=== PATIENT | female | born 1955 | race Caucasian/White ===

== ENCOUNTER 2020-08-15 18:52 | Emergency (ER) | payer MEDICAID, SELFPAY ==
[2020-08-15 19:06] VITALS: BP 163/98; PULSE 80; RESP 18; TEMP 36.9; O2SAT 97; BMI 25.4
--- NOTE | 2020-08-15 19:12 | XR_ITS ---
WS: [id number] EXAM: RIGHT WRIST: 3 VIEWS DATE OF EXAMINATION: 08/15/2020, 1928 hours COMPARISON: Right hand examination from 05/17/2019. HISTORY: Patient is 64 years old with wrist pain status post fall. FINDINGS: Bone density is decreased. There are findings of a distal radial metaphyseal fracture with slight int ra-articular extension with minimal impaction and angulation deformity. No ulnar fracture seen. No de finite carpal bone fracture is identified. Slight changes of arthritis are seen in the wrist as well as at the first metacarpal phalangeal joint. Soft tissue swelling dorsally at the fracture site noted . XR/XR wrist RT min 3V* [id number] IMPRESSION: Minimally impacted and angulated distal radial metaphyseal fracture with intra- articular extension.
--- NOTE | 2020-08-15 19:13 | W.ED.EXTPRO ---
HPI - Extremity Problem General: Chief complaint: Extremity Injury, Upper Stated complaint: RIGHT WRIST/ARM INJURY FALL Time Seen by Provider: 08/15/20 19:12 History of Present Illness: HPI Narrative: Patient is a 64-year-old female comes to the ED with right wrist pain. Patient says couple hours ago she was walking to the [facility] [place] and she slipped on a wet rock and caught herself with her right arm outstretched. Patient says she really felt pain in her right wrist after fall. She currently rates the pain in her right wrist and 8 out of 10. Denies any other symptoms. Denies head trauma or loss of consciousness. Associated symptoms: Deny chest pain, fever(s) or rash Review of Systems Const: Denies: fever(s), chills or fatigue Eyes: Denies: change in vision or eye discomfort ENMT: Denies: throat pain, odynophagia, nasal discharge or nasal congestion Card: Denies: chest pain, palpitations, edema, swelling of feet/ankles, dyspnea on exertion or orthopnea Resp: Denies: dyspnea, productive cough or non-productive cough GI: Denies: abdominal pain, nausea, vomiting, diarrhea, constipation or hematochezia : Denies: flank pain, dysuria or hematuria Musc: Reports: extremity pain (right wrist pain); Denies: neck pain, back pain or extremity swelling Skin/Breast: Denies: rash or new lesions Neuro: Denies: headache(s), numbness in extremities or weakness in extremities Physical Exam Const: COMMON NORMALS: no acute distress, patient oriented x3, healthy appearing and alert GENERAL APPEARANCE: cooperative and comfortable HENMT: COMMON NORMALS: normocephalic HEAD & SCALP: normocephalic MOUTH: Normal oral and palatal mucosa present THROAT: posterior oropharynx normal and uvula midline Neck/C-Spine: COMMON NORMALS: supple GENERAL: Yes normal visual inspection Resp: COMMON NORMALS: normal respiratory effort, No retractions, No use of accessory muscles and clear to auscultation bilaterally AUSCULTATION: clear to auscultation bilaterally Cardio: COMMON NORMALS: regular rate, regular rhythm, S1 normal heart sound present, S2 normal heart sound present, No gallops present (Cardio), No clicks present (Cardio), No murmurs present (Cardio) and Peripheral pulses 2+ throughout RATE: regular rate RHYTHM: regular rhythm HEART SOUNDS: S1 normal heart sound present and S2 normal heart sound present PERIPHERAL PULSES: Peripheral pulses 2+ throughout GI: COMMON NORMALS: Normal to inspection, nondistended, normoactive bowel sounds present, Soft to palpation, non-tender and no masses PALPATION: Yes Soft to palpation : COMMON NORMALS: Yes no CVA tenderness BLADDER/KIDNEY EXAM: Yes no CVA tenderness Back/Pelvis: COMMON NORMALS: no CVA tenderness Extremity: RIGHT UPPER EXTREMITY: Yes wrist Right wrist: Yes inspection (No visible deformity, ecchymosis or edema present.), Yes palpation (Tenderness to palpation over both medial and lateral aspect of wrist.), Yes ROM (Limited due to pain) and Yes neurovascular exam (Sensation intact, 2+ radial pulse, cap refill normal) Neuro: COMMON NORMALS: patient oriented x3 and moves all extremities SENSORIUM/ORIENTATION: Yes alert Skin: COMMON NORMALS: no rashes or lesions noted GENERAL SKIN EXAM: no rashes or lesions noted and dry skin Course Vital Signs: Vital signs: Vital Signs Temperature 98.4 F 08/15/20 19:06 Pulse Rate 80 08/15/20 19:06 Respiratory Rate 18 08/15/20 19:06 Blood Pressure 163/98 08/15/20 19:06 Pulse Oximetry 97 08/15/20 19:06 MDM - Extremity (Nontraumatic) MDM Narrative: Medical decision making narrative: Patient is a 64-year-old female comes to the ED with right wrist pain after fall. Physical exam showed no visible deformity or edema right wrist. Radial pulse 2+, sensation distal to injury intact. Cap refill normal. X-ray showed nondisplaced distal radial head fracture. Patient was put in a sugar tong splint and I placed an order for case management to refer patient to orthopedic. Patient was discharged with a written prescription for hydrocodone and told to limit activity with right hand and continue wearing splint and keep it dry. I told patient that case management should be contacting her in the next several days to set up an appointment with [facility] orthopedics. Return to ED precautions given. Patient understood and agreed with plan. Imaging Data^: Xray Ortho: Attestation: I personally reviewed and interpreted this imaging study as follows: My impression: Right wrist x-ray showed a nondisplaced distal radial head fracture. Discharge Plan Discharge Patient Disposition: Home Condition: Stable Discharge Orders: Discharge Order (Routine); Ordered 08/15/20 Ordered By: Ablerto Crisostomo Referrals: Bruce Vinson DO [Primary Care Provider] - Discharge Diet: Regular Discharge Activity: Limit activity as instructed Patient Instructions: Wrist Fracture in Adults (ED) Activity Restrictions/Additional Instructions: Follow-up with medical provider as directed. Case management should be contacting you in the next several days to set up an appointment with orthopedic clinic at [facility]. Take medications as prescribed. You can also take [id number] ibuprofen per bottle instructions in between hydrocodone doses as needed for pain. Return to the ER or your medical provider if condition worsens. Please read and understand discharge instructions. If any questions, please ask. Coding Level of Care Code ED Linoleum Layer Helper for Yarely Fwd Exam Comprehensive
[2020-08-15] MEDS: HYDROcodone-acetaminophen 7.5-325 mg Tablet 1 TAB PO ×2 (19:51→20:16)
--- NOTE | 2020-08-16 09:42 | DCPLANNER ---
change manager had message to schedule a follow up appointment for patient with ortho. change manager called the ortho clinic, spoke with Samra, gave clinic patients information. change manager was told that patients information would be printed and reviewed. Clinic will call patient with appointment information.
--- NOTE | 2020-08-17 15:21 | DCPLANNER ---
Patient has a follow up appointment scheduled for Friday, August 21, 2020 at 11:15 with . Clinic will call patient with appointment information.
--- NOTE | 2020-08-28 08:24 | DCPLANNER ---
Patient had a follow up appointment scheduled for 08.21.20 with ortho - patient did attend the appointment.
== END 2020-08-15 20:22 | disposition home or self-care (01) ==
LOC: ER 19:59
PROVIDERS: Emergency Provider Physician Assistant; PCP Internal Medicine
DX: M25.531 Pain in right wrist (principal)
CPT/HCPCS: 12345; 29125; 73110; 99281; 99283

== ENCOUNTER → 2020-08-21 11:39 | Outpatient (BNVA) | payer MEDICAID, SELFPAY | PROVIDERS: PCP Internal Medicine; Referring Provider Physician Assistant; Visit Provider Specialist | DX: S52.501A Unspecified fracture of the lower end of right radius, initial encounter for closed fracture (principal) | CPT/HCPCS: 73110 ==

== ENCOUNTER 2020-08-21 14:47 | Outpatient (CLI) | payer MEDICAID, SELFPAY | END 2020-08-21 14:48 | disposition home or self-care (01) | LOC: SPT 14:48 | PROVIDERS: PCP Internal Medicine; Visit Provider Specialist | DX: Z46.89 Encounter for fitting and adjustment of other specified devices (principal); S52.501D Unspecified fracture of the lower end of right radius, subsequent encounter for closed fracture with routine healing; W19.XXXD Unspecified fall, subsequent encounter | CPT/HCPCS: 97760; L3982 ==

== ENCOUNTER → 2020-09-06 08:03 | Outpatient (BNVA) | payer MEDICAID, SELFPAY | PROVIDERS: PCP Internal Medicine; Visit Provider Specialist | DX: S52.501A Unspecified fracture of the lower end of right radius, initial encounter for closed fracture (principal); X58.XXXA Exposure to other specified factors, initial encounter | CPT/HCPCS: 73110 ==

== ENCOUNTER → 2020-10-04 08:43 | Outpatient (BNVA) | payer MEDICAID, SELFPAY | PROVIDERS: PCP Internal Medicine; Visit Provider Specialist | DX: S52.501A Unspecified fracture of the lower end of right radius, initial encounter for closed fracture (principal); X58.XXXA Exposure to other specified factors, initial encounter | CPT/HCPCS: 73110 ==

== ENCOUNTER → 2021-07-04 11:49 | Outpatient (BNVA) | payer MEDICAID, SELFPAY | PROVIDERS: PCP Internal Medicine; Visit Provider Nurse Practitioner | DX: M25.571 Pain in right ankle and joints of right foot (principal); M79.89 Other specified soft tissue disorders | CPT/HCPCS: 73610 ==

== ENCOUNTER 2022-07-31 20:48 | Emergency (ER) | payer MEDICARE, MEDICAID, SELFPAY ==
[2022-07-31 21:12] VITALS: BP 148/81; PULSE 79; RESP 18; TEMP 36.9; O2SAT 98; BMI 25.4
[2022-07-31 21:16] VITALS: BP 157/105; PULSE 79; RESP 17
--- NOTE | 2022-07-31 21:40 | W.ED.HA ---
HPI - Headache General: Chief Complaint: Headache Stated Complaint: Migrane, N/V Time Seen by Provider: 07/31/22 21:27 Source: patient Mode of arrival: ambulatory Limitations: no limitations History of Present Illness: 66-year-old female states she has a history of headaches has had long history of migraine headache states that she had a migraine that started this morning. States that gradually worsened and is currently an 8 out of 10 she has photophobia phonophobia denies any fever denies any neck pain states this feels like her previous migraines. Associated symptoms: Deny chest pain, fever(s), nausea, rash or vomiting Review of Systems Const: Denies: fever(s), chills, body aches or change in appetite Eyes: Denies: blurry vision or eye discomfort ENMT: Denies: throat pain or dental pain Card: Denies: chest pain Resp: Denies: dyspnea GI: Denies: abdominal pain, nausea, vomiting or diarrhea : Denies: dysuria Musc: Denies: neck pain or back pain Skin/Breast: Denies: rash Neuro: Reports: headache(s) Psych: Denies: depression Willy/Lymph: Denies: easy bruising All/Imm: Denies: urticaria PFSH ED PFSH: Medical History Adhesive capsulitis of left shoulder Colitis GERD (gastroesophageal reflux disease) Osteoarthritis of left shoulder Family History Brother Diabetes Mother Stroke Father Stroke Social History Smoking and tobacco status: current every day smoker cigarettes Packs smoked per day: 0.5 Physical Exam Const: COMMON NORMALS: no acute distress, patient oriented x3 and healthy appearing HENMT: COMMON NORMALS: normocephalic and atraumatic HEAD & SCALP: normocephalic and atraumatic Eye: COMMON NORMALS: Equal, round and reactive pupils present and EOMs intact bilaterally PUPIL: Yes Equal, round and reactive pupils present Neck/C-Spine: COMMON NORMALS: full ROM and supple Chest: COMMONS NORMALS: normal inspection of the chest and normal palpation of entire chest wall Resp: COMMON NORMALS: normal respiratory effort, No retractions, No use of accessory muscles and clear to auscultation bilaterally AUSCULTATION: clear to auscultation bilaterally Cardio: COMMON NORMALS: regular rate, regular rhythm and No murmurs present (Cardio) RATE: regular rate RHYTHM: regular rhythm GI: COMMON NORMALS: Normal to inspection, nondistended, normoactive bowel sounds present, Soft to palpation, non-tender and no masses PALPATION: Yes Soft to palpation Extremity: COMMON NORMALS: normal to inspection and full ROM Neuro: COMMON NORMALS: patient oriented x3, moves all extremities and no focal motor deficits Psych: COMMON NORMALS: mental status grossly normal, Normal thought process present and cooperative THOUGHT PROCESS: Normal thought process present Skin: COMMON NORMALS: no rashes or lesions noted and no wounds GENERAL SKIN EXAM: no rashes or lesions noted Course Vital Signs: Vital signs: Vital Signs Temperature 98.5 F 07/31/22 21:12 Pulse Rate 75 07/31/22 22:16 Respiratory Rate 13 07/31/22 22:16 Blood Pressure 164/98 07/31/22 22:16 Pulse Oximetry 98 07/31/22 21:12 Oxygen Delivery Me thod 07/31/22 22:16 MDM - Headache Medical Decision Making Patient presents here with a migraine headache her symptoms are resolved here with treatment she has no signs of meningitis or subarachnoid hemorrhage she is stable for discharge she is to follow-up with her PCP and return if worsening she understands agrees to plan. Discharge Plan Discharge Patient Disposition: Home Clinical Impression: Migraine Condition: Stable Prescriptions: No Action famotidine 20 mg tablet 20 mg PO BID Qty: 60 0RF Rx Instructions: after [address] Ferris's nurse for report metronidazole 500 mg tablet 500 mg PO Q8H Qty: 20 0RF Discharge Orders: Discharge ED (Routine); Ordered 07/31/22 Ordered By: Margarita Street Referrals: Jenna Ferris MD [Primary Care Provider] - 1-3 days Discharge Diet: Advance as tolerated Discharge Activity: Resume usual activity Patient Instructions: Migraine Headache (ED) Coding Level of Care Code ED Air Pollution Control Engineer for Chg Fwd Exam Comprehensive
[2022-07-31 21:46] VITALS: BP 153/99; PULSE 66; RESP 16
[2022-07-31] MEDS: diphenhydrAMINE 50 mg/mL SDV 1mL 25 MG IVP (22:12)
[2022-07-31] MEDS: metoclopramide 5 mg/mL SDV 2 mL IVP (22:12)
[2022-07-31] MEDS: ketorolac 30 mg/mL INJ 15 MG IVP (22:12)
[2022-07-31 22:16] VITALS: BP 164/98; PULSE 75; RESP 13
[2022-07-31 22:46] VITALS: BP 138/87; PULSE 75; RESP 18
== END 2022-07-31 22:47 | disposition home or self-care (01) ==
PROVIDERS: Emergency Provider Emergency Medicine; PCP Family Medicine
DX: G43.909 Migraine, unspecified, not intractable, without status migrainosus (principal); F17.210 Nicotine dependence, cigarettes, uncomplicated
CPT/HCPCS: 96374; 96375; 99284; J1200; J1885; J2765

== ENCOUNTER → 2023-10-07 10:25 | Outpatient (BNVA) | payer MEDICARE, MEDICAID, SELFPAY | PROVIDERS: PCP Family Medicine; Visit Provider Family Medicine | DX: K21.9 Gastro-esophageal reflux disease without esophagitis (principal); M19.012 Primary osteoarthritis, left shoulder; E03.9 Hypothyroidism, unspecified; E53.8 Deficiency of other specified B group vitamins; S52.571D Other intraarticular fracture of lower end of right radius, subsequent encounter for closed fracture with routine healing; Z12.31 Encounter for screening mammogram for malignant neoplasm of breast; N39.3 Stress incontinence (female) (male) | CPT/HCPCS: 80053; 82607; 84443; 85025 ==

== ENCOUNTER 2023-10-22 11:52 | Outpatient (CLI) | payer MEDICARE, MEDICAID, SELFPAY ==
--- NOTE | 2023-10-22 11:59 | MM_ITS ---
WS: [id number] BILATERAL 3D TOMOSYNTHESIS DIGITAL SCREENING MAMMOGRAPHY WITH CAD CLINICAL INFORMATION: screening: last done 2018 HISTORY: Screening mammogram. No current complaints. COMPARISON: 2018 TECHNIQUE: Bilateral CC and MLO views. FINDINGS: The breasts are composed of heterogeneous fibroglandular density tissue, which can limit the detectio n of small underlying mass lesions. No suspicious mass, asymmetry, calcifications, or architectural d istortion. No evidence of malignancy. A few incidental punctate calcifications around IMPRESSION: MM/[place] [id number] BI-RADS: 2-Benign FOLLOW UP: 1 Year Follow-up Recommend return to annual screening mammography.
== END 2023-10-22 11:53 | disposition home or self-care (01) ==
LOC: RAD 11:52
PROVIDERS: PCP Family Medicine; Visit Provider Family Medicine
DX: Z12.31 Encounter for screening mammogram for malignant neoplasm of breast (principal)
CPT/HCPCS: 77063; 77067

== ENCOUNTER 2023-10-28 14:52 | Outpatient (CLI) | payer MEDICARE, MEDICAID, SELFPAY ==
--- NOTE | 2023-10-28 15:01 | XRR_ITS ---
PROCEDURE INFORMATION: Exam: XR Left Hip Exam date and time: 10/28/2023 3:13 PM Age: 67 years old Clinical indication: Injury or trauma; Fall; Blunt trauma (contusions or hematomas); Left; Hip; Injury date: 2 weeks ago; Additional info: Pain in left hip with ambulation difficulty TECHNIQUE: Imaging protocol: Radiologic exam of the left hip. Views: 2 or 3 views hip with pelvis when performed. COMPARISON: No relevant prior studies available. FINDINGS: Bones/joints: Severe left hip osteoarthritis with subchondral degenerative cystic changes. Soft tissues: Unremarkable. XR/XR hip LT 2-3V wo/w pel* [id number] IMPRESSION: Severe left hip osteoarthritis with subchondral degenerative cystic changes.
== END 2023-10-28 14:53 | disposition home or self-care (01) ==
LOC: RAD 14:53
PROVIDERS: PCP Family Medicine; Visit Provider Nurse Practitioner Family
DX: M16.12 Unilateral primary osteoarthritis, left hip (principal)
CPT/HCPCS: 73502

== ENCOUNTER → 2023-12-16 07:48 | Outpatient (BNVA) | payer MEDICARE, MEDICAID, SELFPAY | PROVIDERS: PCP Family Medicine; Referring Provider Family Medicine; Visit Provider Student in an Organized Health Care Education/Training Program | DX: M16.12 Unilateral primary osteoarthritis, left hip (principal); Z01.818 Encounter for other preprocedural examination; M25.559 Pain in unspecified hip | CPT/HCPCS: 99204 ==

== ENCOUNTER 2023-12-30 11:16 | Outpatient (CLI) | payer MEDICARE, MEDICAID, SELFPAY ==
[2023-12-30 11:43] LABS: Basophils % 0.6 %; Eosinophils # 0.4 10^3/uL (0.0-0.8); Eosinophils % 7.3 %; Hematocrit 39.8 % (36-47); Lymphocytes # 1.3 10^3/uL (0.8-4.8); Lymphocytes % 26.4 %; Mean Corpuscular HGB Conc 32.9 g/dL (30-55); Mean Corpuscular Hemoglobin 29.4 pg (27-33); Mean Corpuscular Volume 89.2 fl (85-98); Mean Platelet Volume 8.7 fL (7.4-10.4); Monocytes # 0.4 10^3/uL (0.2-0.9); Monocytes % 8.3 %; Neutrophils # 2.75 10^3/uL (1.8-7.7); Neutrophils % 57.2 %; Nucleated Red Blood Cells % 0 %; Platelet Count 287 10^3/cmm (157-399); Red Blood Count 4.46 10^6/uL (3.85-5.65); Red Cell Distribution Width 12.5 % (12.1-15.1); White Blood Count 4.81 10^3/uL (3.29-11.43)
[2023-12-30 11:54] LABS: Chloride 101 mmol/L (98-107); Potassium 4.4 mmol/L (3.5-5.1); Sodium 137 mmol/L (136-145)
[2023-12-30 12:06] LABS: Albumin Level 4.2 g/dL (3.5-5.2)
[2023-12-30 12:10] LABS: Urine Appearance Hazy (CLEAR); Urine Color Yellow (Yellow); pH Urine 7 (5-7)
[2023-12-30 12:11] LABS: Add Urine Microscopic? YES; Bilirubin Urine Neg (Negative); Blood Urine 2+ (Negative); Glucose Urine UA Norm (Normal); Ketones Urine Negative (Negative); Leukocyte Esterase Urine 1+ (Negative); Nitrate Urine Positive (Negative); Protein Urine Neg (Negative); Urobilinogen Urine Norm (Negative)
[2023-12-30 12:14] LABS: RBC Urine 0-4 /hpf (0-2); WBC Urine 15-25 /hpf (0-5)
[2023-12-30 12:15] LABS: Add Urine Culture? Yes; Bacteria Urine 3+ /hpf; Squamous Epithelial Cell Urine 0-4 /hpf (0-5)
[2023-12-30 12:51] LABS: Anion Gap 15.4 (5-19); Aspartate Amino Transferase 32 U/L (0-32); Blood Urea Nitrogen 15 mg/dL (8-23); Calcium 9.1 mg/dL (8.5-10.5); Carbon Dioxide 25 mmol/L (22-29); Globulin 2.9 g/dL (1.3-4.6); Glomerular Filtration Rate 71.5 mL/min (90-130); Glucose 111 mg/dL (65-115); Osmolality Calculated 286 mOsm/kg (285-295); Total Bilirubin 0.4 mg/dL (0.15-1.2); Total Protein 7.1 g/dL (6.6-8.7)
[2023-12-30 12:55] LABS: Alanine Aminotransferase 42 U/L (0-33)
[2023-12-30 13:20] LABS: Alkaline Phosphatase 132 U/L (35-105)
[2024-01-05 00:15] LABS: Cotinine, Urine 7 ng/mL; Nicotine, Urine 7 ng/mL
== END 2023-12-30 11:17 | disposition home or self-care (01) ==
LOC: LAB 11:19
PROVIDERS: PCP Family Medicine; Visit Provider Student in an Organized Health Care Education/Training Program
DX: Z01.818 Encounter for other preprocedural examination (principal)
CPT/HCPCS: 36415; 80053; 80323; 81001; 85025; 87077; 87086; 87186

== ENCOUNTER 2024-01-06 09:50 | Outpatient (CLI) | payer MEDICARE, MEDICAID, SELFPAY ==
--- NOTE | 2024-01-06 10:00 | CT_ITS ---
WS: [id number] CT LEFT HIP ORI PROTOCOL. HISTORY: ARTHRITIS Technique: All CT scans at [facility] use at least one of these dose optimization techniques: automated exposure control; mA and/or kV adjustment per patient size (includes targeted exams where dose is matched to clinical indication); or iterative reconstruction. DLP: 820.22 mGy COMPARISON: None available. Axial imaging through the pelvis. Severe osteoarthritis of the LEFT hip. Loss of the normal joint spa ce with subchondral cystic changes in the femoral head and acetabulum. There is bone upon bone. Marke d osteophytic ridging around the femoral head. There is additional increased soft tissue surrounding the LEFT femoral head. Suspect synovitis and possible fluid. Negative bilateral hip imaging. IMPRESSION: CT performed for LEFT hip Ori procedure. Severe osteoarthritis LEFT hip.
== END 2024-01-06 09:51 | disposition home or self-care (01) ==
LOC: RAD 09:50
PROVIDERS: PCP Family Medicine; Visit Provider Student in an Organized Health Care Education/Training Program
DX: M16.12 Unilateral primary osteoarthritis, left hip (principal)
CPT/HCPCS: 73700

== ENCOUNTER → 2024-01-07 09:14 | Outpatient (BNVA) | payer MEDICARE, MEDICAID, SELFPAY | PROVIDERS: PCP Family Medicine; Visit Provider Family Medicine | DX: Z01.818 Encounter for other preprocedural examination (principal) | CPT/HCPCS: 81000 ==

== ENCOUNTER 2024-01-11 11:37 | Outpatient (CLI) | payer MEDICARE, MEDICAID, SELFPAY ==
[2024-01-11 11:55] LABS: Bilirubin Urine 1+ (Negative); Blood Urine 2+ (Negative); Glucose Urine UA Norm (Normal); Ketones Urine Negative (Negative); Leukocyte Esterase Urine Trace (Negative); Nitrate Urine Negative (Negative); Protein Urine Neg (Negative); Urine Appearance Clear (CLEAR); Urine Color Yellow (Yellow); Urobilinogen Urine 1 mg/dL (Negative); pH Urine 6.5 (5-7)
[2024-01-11 12:01] LABS: Add Urine Culture? No; Bacteria Urine TRACE /hpf; RBC Urine RARE /hpf (0-2); WBC Urine 0-4 /hpf (0-5)
== END 2024-01-11 11:38 | disposition home or self-care (01) ==
PROVIDERS: PCP Family Medicine; Visit Provider Family Medicine
DX: Z01.818 Encounter for other preprocedural examination (principal)
CPT/HCPCS: 81001

== ENCOUNTER 2024-01-12 12:08 | Observation (INO) | payer MEDICARE, MEDICAID, SELFPAY ==
[2024-01-12] VITALS (19 sets, daily range): BP systolic 110–150; BP diastolic 53–82; PULSE 62–77; RESP 14–21; TEMP 36.3–36.7; O2SAT 93–100; BMI 25.4
--- NOTE | 2024-01-12 | XR_ITS ---
WS: [id number] INTRAOPERATIVE TECHNIQUE: 1 Spot fluoroscopic images for intraoperative purposes. FLUOROSCOPY TIME: 43.5 seconds CLINICAL INFORMATION: ORIF hip, or pic COMPARISON: None. FINDINGS: Intraoperative changes LEFT SABRINA. Hardware appears in good position. IMPRESSION: Images obtained for intraoperative purposes.
[2024-01-12 07:49] LABS: Basophils # 0.1 10^3/uL (0.0-0.1); Eosinophils # 0.5 10^3/uL (0.0-0.8); Eosinophils % 8.3 %; Hematocrit 44.4 % (36-47); Lymphocytes # 1.5 10^3/uL (0.8-4.8); Lymphocytes % 24.2 %; Mean Corpuscular HGB Conc 33.6 g/dL (30-55); Mean Corpuscular Hemoglobin 30.1 pg (27-33); Mean Corpuscular Volume 89.7 fl (85-98); Mean Platelet Volume 8.8 fL (7.4-10.4); Monocytes # 0.6 10^3/uL (0.2-0.9); Monocytes % 8.7 %; Neutrophils # 3.63 10^3/uL (1.8-7.7); Neutrophils % 57.6 %; Nucleated Red Blood Cells % 0 %; Platelet Count 340 10^3/cmm (157-399); Red Blood Count 4.95 10^6/uL (3.85-5.65); Red Cell Distribution Width 13.2 % (12.1-15.1); White Blood Count 6.29 10^3/uL (3.29-11.43)
[2024-01-12] MEDS: ketorolac 30 mg/mL INJ IVP (08:03)
[2024-01-12] MEDS: acetaminophen 1,000 MG/100 ML PIGGYBACK 400 MG IV ×3 (08:03→19:58)
[2024-01-12] MEDS: lactated ringers 500 ML IV (08:03)
[2024-01-12 08:12] LABS: Anion Gap 17.4 (5-19); Blood Urea Nitrogen 19 mg/dL (8-23); Calcium 9.3 mg/dL (8.5-10.5); Carbon Dioxide 22 mmol/L (22-29); Chloride 100 mmol/L (98-107); Glomerular Filtration Rate 62.5 mL/min (90-130); Glucose 102 mg/dL (65-115); Osmolality Calculated 282 mOsm/kg (285-295); Potassium 4.4 mmol/L (3.5-5.1); Sodium 135 mmol/L (136-145)
[2024-01-12] MEDS: scopolamine 1.5 Patch 1 PATCH TRANSDERMA (08:19)
--- NOTE | 2024-01-12 08:19 | W.PM.OPSUD ---
Surgery/Procedure H&P Update DATE OF PROCEDURE: January 12, 2024 DATE H&P PERFORMED: 12/16/23 H&P UPDATE INFORMATION: I have reviewed H&P completed within last 30 days, I have examined patient prior to procedure and No changes to prior documentation PREOP DIAGNOSIS: Left hip degenerative joint disease PRIMARY INDICATION FOR PROCEDURE: Left hip degenerative joint disease PLANNED PROCEDURE: Operation Date: 01/12/24 08:40 Proposed Procedures p Ori Robot Anterior Hip Arthroplasty(left)(Left) - Brian Crisostomo DO
[2024-01-12] MEDS: ceFAZolin 2,000 MG in sodium chloride 0.9% (plus) 50 ML 100 MG IV ×3 (08:33→19:57)
[2024-01-12] MEDS: tranexamic acid 1,000 mg/10mL SDV 1000 MG IV (09:14)
[2024-01-12] MEDS: lidocaine-epi 1% 20 mL INJ INJECTION (09:42)
--- NOTE | 2024-01-12 10:00 | PC.NURSE ---
Called and notified family, Michelle, of procedure start at 0930.
--- NOTE | 2024-01-12 10:37 | P.ANESASSM_ITS ---
Pre-Anesthetic Assessment Height/Weight: Height 1.55 m Weight 61.235 kg O2 Del Method Room Air 01/12/24 07:32 Preop Diagnosis: Left hip degenerative joint disease Operation Date: 01/12/24 08:40 Proposed Procedures p Ori Robot Anterior Hip Arthroplasty(left)(Left) - Brian Crisostomo DO Familial anesthetic complications: none Was Beta Gabrielle taken within 24 hours: N/A Was Clonidine taken within 24 hours: N/A Last intake: Intake Last Liquid Date 01/11/24 Last Liquid Time 21:00 Last Solid Date 01/11/24 Last Solid Time 21:00 Social Tobacco and No alcohol Exam alert, oriented x 3 and regular rate & rhythm Airway Submandibular: within normal limits Cervical ROM: within normal limits Mallampati: Class II Dentition: false Pulmonary Chronic Obstructive Pulmonary Disease GI Gastroesophageal Reflux Disease colitis Musc/skel Osteoarthritis/DJD Anesthetic Plan ASA status: 3 Anesthesia: Regional (specify below) (SAB) Medications/Allergies Home Medications Medication Instructions Recorded Confirmed Last Taken Type famotidine 20 mg tablet 20 mg PO BID #60 tabs 02/19/22 01/09/24 Unknown Rx fluticasone propionate 50 1 spray intranasal BID #16 grams 11/25/22 01/09/24 Unknown Rx mcg/actuation nasal spray,suspension diclofenac sodium 75 mg 75 mg PO BID PRN pain #60 tabs 12/24/23 01/09/24 01/08/24 Rx tablet,delayed release Allergies Allergy/AdvReac Type Severity Reaction Status Date / Time No Known Allergies Allergy Verified 01/07/24 09:06 [facility] Anesthesia Medical History URI with cough and congestion Colitis GERD (gastroesophageal reflux disease) Adhesive capsulitis of left shoulder Osteoarthritis of left shoulder Surgical History H/O: hysterectomy Family History Brother Diabetes Mother Stroke Father Stroke Social History Smoking and tobacco/nicotine status: current every day tobacco/nicotine user cigarettes Packs smoked per day: 0.5 Alcohol intake: never Data Anesthesia 01/12/24 07:20 01/12/24 07:20 Short CBC 01/12/24 Range/Units 07:20 WBC 6.29 (3.29-11.43) 10^3/uL Hgb 14.90 (11.27-16.99) g/dL Hct 44.4 (36-47) % MCV 89.7 (85-98) fl Plt Count 340 (157-399) 10^3/cmm Neut % (Auto) 57.6 % Neut # (Auto) 3.63 (1.8-7.7) 10^3/uL BMP 01/12/24 07:20 Sodium 135 L Potassium 4.4 Chloride 100 Carbon Dioxide 22 BUN 19 Creatinine 0.9 Glucose 102 Calcium 9.3 Blood Bank 01/12/24 07:20 Blood Type A Positive Rho(D) Type Rh positive Antibody Screen Negative Cardiac Studies: 2 No Data to Display
[2024-01-12] MEDS: sodium chloride 0.9% 1,000 ML 30 ML IV (10:45)
[2024-01-12] MEDS: vancomycin 1,000 MG SDV 1000 MG INTRA-ARTI (11:03)
--- NOTE | 2024-01-12 11:29 | W.PM.BPON ---
Date of Procedure: 01/12/2024 Surgeon: Brian Crisostomo DO Property Maintenance Supervisor(s): Alberto Crisostomo PA-C Procedure(s) performed: Left total hip arthroplasty?Ori robotic assisted Findings of the procedure(s): Left hip degenerative joint disease Estimated blood loss: 200 mL Specimen(s) removed: Femoral head removed Post-operative diagnosis: Left hip degenerative joint disease
--- NOTE | 2024-01-12 11:32 | PM.OP ---
Operative Report Date of procedure: January 12, 2024 Surgeon: Brian Crisostomo DO Clinical Documentation Specialist: Alberto Crisostomo PA-C: PA was necessary for assistance in this case with leg positioning retraction and protection of neurovascular structures as well as assistance in implantation wound closure and dressing application. Procedure: Preop Diagnosis Left hip degenerative joint disease Post-op diagnosis: Same Procedure done: Left total hip arthroplasty?Ori robotic assisted?anterior?approach Implants: Rosi Trident acetabular shell size 48 mm Rosi acetabular screw 30 mm Rosi acetabular screw 25 mm Accolade II 132 degree size 5? femur stem Trident 0 degree polyethylene 36 degree inner diameter 36 mm femoral head ceramic +0 mm Surgeon: Brian Crisostomo DO Anesthesia: Other (Spinal) Estimated blood loss: 200 mL IV fluids: 1400 mL Complications: None Findings: See operative report narrative Condition: stable Disposition: floor Brief History: Patient is a 68-year-old female presented to my outpatient office setting findings consistent with ggbv-st-xiel arthritis advanced degenerative joint disease of?the Left hip.? We talked about treatment options as far as nonoperative and operative intervention. Pt has failed conservative treatment.? we talked about treatment options at?this point time pt understands?the risk benefits complication alternatives surgical nonsurgical treatment options.? Patient understands?the risk of surgery and agrees to proceed.? Patient has underwent a preoperative evaluation. Pt cleared for surical intervention. Pt understood and was agreeable to proceed with a Left total hip arthroplasty consent was reviewed and signed with patient.?? All questions answered.? Patient will be admitted postoperatively. Procedure: Patient was seen evaluated in?the preoperative holding area.? Consent was reviewed and signed with patient.? Correct operative extremity was?then marked. ? All questions were answered at?this time.? Once cleared by anesthesia used to brought back to?the operative suite he?then underwent anesthesia per?the anesthesia department of a spinal anesthetic. The patient was administered tranexamic acid and preop antibiotics, and placed in?the supine position. All bony prominences were properly padded, securely fixed to?the table, and administered?general?anesthetic.?The patient was subsequently transferred from?the hospital bed to?the [facility] table. Bilateral lower extremities were placed in?the traction boots.?The pelvis was well approximated against?the perineal post.? Final timeout performed.? Patient received appropriate preoperative antibiotics. Both hips were?then prepped and draped in a normal orthopedic fashion.? Started with a small incision 2 fingerbreadths above?the ASIS on?the right iliac wing to place? pelvic arrays.? Small incision was made directly down to bone.? 3 pelvic pins were placed with excellent fixation.??The robotic array was secured to?the nonoperative iliac wing using sterile technique.?The extremity was?then definitively draped in standard, sterile fashion.??The array was found to be visible by?the robot. ?A standard??anterior?supine approach was performed to?the?operative hip joint.?The skin was incised down to?the tensor fascia daniela muscle and fascia. Fascia was split longitudinally in line with its fibers.?The tensor fascia daniela muscle was retracted laterally.?The appropriate retractors were placed superiorly. Lateral circumflex vessels were identified and appropriately ligated.?The hip capsule was?then identified.? Appropriate retractors were placed superiorly and inferiorly along?the capsule directly onto bone.??That was split longitudinally up to?the acetabular rim in line with?the femoral neck.?The femoral capsule was found to be significantly hypertrophic,?thickened, and significantly fibrotic.?The capsule was?then elevated both superiorly and inferiorly down to?the lesser trochanter as well as up towards?the greater trochanter.? Tag stitches were applied with 0 Vicryl into?the capsule.? Femoral check point was?then inserted and confirmed on?the lateral trochanter proximal femur.? .? A distal marker?of a sterile EKG lead was placed into?the distal femur for measurement of leg lengths.? Preoperative leg lengths were registered and confirmed at?this point. Next?the appropriate-sized neck cut was?then performed after being measured with robotic assistance. Femoral head was removed atraumatically?this was found to have significant degenerative changes and deformity with significant osteophyte formation.? Femoral head was found to be severely degenerated and flattening with, eburnated bone. Acetabulum was also inspected and was found to have peripheral osteophytes as well as no evidence of cartilage consistent with [id number] arthritis.? Appropriate retractors were?then placed in?the?anterior?and posterior wall.??The remaining labrum was?then excised from?the periphery of?the acetabular rim. Pulvinar was excised.? At?this point registration for?the Ori was performed on?the acetabular side and confirmed. Once confirmed, any osteophytes able to be were removed. We planned 40 degrees of lateral opening and 20 degrees of anteversion. At?this point, we reamed and medialized to?the inner wall of?the acetabulum with a size?48?reamer for line to line fit.?The acetabulum was found to have good bleeding bone?throughout.?? Reamer removed excellent bleeding bone circumferentially with sufficient?anterior?and posterior wall. ?The definitive acetabular cup 48 mm was inserted and impacted under?Ori guidance with?the appropriate amount of anteversion and lateral opening. It was?then secured with 2x 6.5 mm cancellous screws in appropriate safe zone position.? I subsquently drilled measured and place appropriate length acetabular screws which measured 30 mm and 25 mm.??These had excellent fixation final x-rays were taken of?the acetabular work and showed a seated and well fixed acetabular cup with appropriate position acetabular screws.? ?Next a 36-mm X3 neutral liner was impacted into?the?acetabular shell and secured. Hip was?then irrigated with copious amounts of irrigation. At?this point,?the remaining femoral releases were?then performed allowing?the adequate mobilization of?the?Left?femur.? Traction was confirmed to being off to?the Left lower extremity and?the femur was?then externally rotated, extended, and adducted giving adequate exposure of?the proximal femur in?the surgical wound. Box cut was?then used to enter?the intramedullary canal of?the?femur. Canal finder was placed down?the canal of?the?operative femur. Appropriate-sized broaches from a size 0 up to a size 5 were impacted down?the operative femoral canal with?the appropriate amount of anteversion.? A multiple trials were attempted and it was found?that?+0mm neck was found to be most appropriate for a soft tissue tensioning offset, stability and?the leg lengths?that was confirmed with Ori. ?Stability was?then assessed and excellent stability with patient external rotation of greater?than 90 degrees and traction with no evidence of hip instability.? Appropriate tension noted of?the soft tissues. At?this point,?the hip was relocated.?Ori guidance was again used to confirm appropriate leg lengths.? I utilized C arm to evaluate for leg lengths as well I did slightly at?the lengthen comparative to?the contralateral extremity but?this was?the appropriate size for patient's stability and excellent soft tissue tensioning as well as?this was mapped with her preoperative planning given she had been significantly shortened given her arthritis.? Operative hip was?then re-dislocated using a bone hook. All trials were?then removed from?the?operative femur. Adequate exposure was?then once again obtained.?The trials were removed. The definitive Accolade II stem size 5 was impacted down?the?femoral canal with?the appropriate amount of anteversion.?The appropriate sized head 36 mm ceramic +0 mm was impacted onto?the trunnion, and?the?operative?hip was?then relocated with traction and internal rotation. Final measurements were obtained on Ori confirming leg lengths and offset.? Once again hip stability was assessed and found to have excellent stability and appropriate soft tissue tensioning.? Hip was irrigated with copious amounts of irrigation.? Vancomycin powder was placed within?the wound bed for added infection prophylaxis.??The superior and inferior leaflets of?the capsule were?then closed with Ethibond suture.? Vicryl tag stitches were removed.??The superficial layer of?the tensor fascia daniela fascia was closed using 0 stratafix suture in a running fashion.? Subcutaneous tissues were closed with running 3-0 Stratafix, skin was closed with 4-0 monocryl.?Surgical Prineo glue and steri strips were?applied and covered with a BENJAMÍN dressing to?the operative side.?The incision on?the non-operative side for?the robotic array was irrigated and closed with layered fashion of 0 Vicryl, 2-0 Vicryl and running Monocryl suture and surgical glue and covered with Silverlon. ?The patient was subsequently awoken per Anesthesia and transferred to PACU in satisfactory condition. ?Leg lengths and rotational profile were found to be appropriate. ? DISPOSITION:?The patient will be admitted to?the hospital for initiation of DVT prophylaxis, physical?therapy, pain control.?The patient is to weight bear as tolerated.?Anterior?hip precautions, postoperative antibiotics,?postoperative TXA and Eliquis?for DVT prophylaxis.? Patient will receive appropriate discharge instructions as well as pain medication postoperatively and will follow up in my office in 2 weeks.? Patient with work with PT/OT.? Internal medicine will be consulted for medical management
--- NOTE | 2024-01-12 11:56 | PM.PACU ---
PACU note Narrative: Patient is a 68-year-old female just underwent a left anterior total hip arthroplasty. Pt transferred to PACU in stable condition. Dressing is dry. pt is awake and alert. pt can wiggle toes and plantarflex and dorsiflex foot. pt able to perform straight leg raise, Femoral nerve intact. Distal pulses are palpable toes are warm and well-perfused. Cap refill is normal and under 2 seconds. Sensation to foot is intact. Pain is controlled. Exam: awake Disposition: admitted
--- NOTE | 2024-01-12 12:28 | XRR_ITS ---
PROCEDURE INFORMATION: Exam: XR Left Hip Exam date and time: 01/12/2024 12:45 PM Age: 68 years old Clinical indication: Device placement; Other: Ange left; Prior surgery; Surgery date: Post-operative (0-2 days); Additional info: Post op ange left, do in pacu TECHNIQUE: Imaging protocol: Radiologic exam of the left hip. Views: 2 or 3 views hip with pelvis when performed. COMPARISON: CT hip LT [facility] [id number] 01/06/2024 10:30 AM FINDINGS: Bones/joints: Total hip replacement. Anatomic alignment. Bone and metal are intact. Periarticular gas. Soft tissues: Unremarkable. XR/XR hip LT 2-3V wo/w pel* [id number] IMPRESSION: No acute findings.
[2024-01-12] MEDS: chlorhexidine gluconate 0.12% Btl 473 mL 30 ML MUCOUS MEM ×3 (12:49→19:58)
[2024-01-12] MEDS: lactated ringers 1,000 ML 100 ML IV (12:50)
[2024-01-12] MEDS: oxyCODONE 5 mg IR Tab/Cap PO ×2 (14:31→17:34)
[2024-01-12] MEDS: TRAMadol 50 mg Tablet PO (14:31)
[2024-01-12] MEDS: HYDROmorphone 1 mg/mL INJ 1 mL 0.5 MG IVP ×2 (15:13→20:38)
--- NOTE | 2024-01-12 16:13 | ANE.PACU2 ---
Inpatient post-anesthesia follow up: Airway intact: Yes Vital signs: Temperature 97.4 F Pulse Rate 71 Respiratory Rate 16 Blood Pressure 114/73 Pulse Oximetry 98 Oxygen Delivery Me thod Room Air Oxygen Flow Rate Fraction of Inspir ed Oxygen Hydration adequate: Yes Nausea and vomiting: No Pain level: 2 Mental status: Baseline
[2024-01-12] MEDS: calcium carb-vit d 600mg/400unit 1 Tablet 1 EACH PO (17:21)
[2024-01-12] MEDS: mupirocin oint 22 gm 1 APPLIC NASAL (17:21)
[2024-01-12] MEDS: iron polysaccharide complex 150 mg Capsule PO (17:21)
[2024-01-12] MEDS: sennosides-docusate Tablet 2 TAB PO (17:21)
[2024-01-12] MEDS: tranexamic acid 1,000 MG/100 ML PREMIX 600 MG IV (17:22)
--- NOTE | 2024-01-12 18:00 | P.CONIM_ITS ---
Providers/Reason For Consult 2 Consulting Physician/Specialty*: Frase/Hospitalist Reason for Consult*: history of smoking, GERD, post op management Requesting Physician: Andressa Attending Physician: Brian Crisostomo DO Primary Care Provider: Jenna Ferris MD History of Present Illness History of Present Illness Jolene Elias is a 68 year old female presented to [facility] on the day of admission for elective left total hip arthroplasty due to severe primary left hip arthritis, [id number]. She underwent Ori assisted left total hip arthroplasty by Dr. Crisostomo today. She did well perioperatively. Estimated blood loss 200 mL. She had spinal anesthesia. Preoperatively she was seen at the preop evaluation clinic. She had an abnormal urinalysis with positive nitrates on January 07 and pleated 5 days of therapy with Bactrim. Repeat urinalysis on January 11 showed negative nitrates with trace leukocyte esterase but also 10-15 epithelial cells. Had been recently prescribed oxybutynin for stress incontinence but had side effects of that and stopped taking it. No new urinary symptoms. She stopped smoking about 4 weeks ago in preparation for surgery. She did similar prior to a left shoulder surgery last year but eventually resumed smoking. She lives with someone who also smokes. After eating dinner and taking some pain medicine, multivitamin and iron tablet, patient had an episode of nausea and vomiting. She reports some difficulty swallowing her pills. She had nausea and vomiting after her shoulder surgery as well. The medication had not been down long enough to be the primary source of her symptoms. Current pain is rated at a 4 out of 10. No reports of any chest pain. Breathing is doing okay. She has been using her incentive spirometer. Last bowel movement was a day prior to surgery. After her shoulder surgery last year she actually had issues with diarrhea rather than constipation. Review of Systems 2 General: Reports: Other (ROS as per HPI or as noted here) Medications/Allergies Home Medications Medication Instructions Recorded Confirmed Last Taken Type famotidine 20 mg tablet 20 mg PO BID #60 tabs 02/19/22 01/09/24 Unknown Rx fluticasone propionate 50 1 spray intranasal BID #16 grams 11/25/22 01/09/24 Unknown Rx mcg/actuation nasal spray,suspension diclofenac sodium 75 mg 75 mg PO BID PRN pain #60 tabs 12/24/23 01/09/24 01/08/24 Rx tablet,delayed release Allergies Allergy/AdvReac Type Severity Reaction Status Date / Time No Known Allergies Allergy Verified 01/07/24 09:06 Current Medications Generic Name Dose Route Start Last Admin Trade Name Refugioq PRN Reason Stop Dose Admin Calcium Carbonate 1 each 01/12/24 18:00 01/12/24 17:21 Calcium Carb-Vit D 600mg/400unit 1 Tablet PO 1 each BID AGUSTO Administration Chlorhexidine Gluconate 30 ml 01/12/24 13:00 01/12/24 17:21 Chlorhexidine Gluconate 0.12% Btl 473 Ml MUCOUS MEM 30 ml QID AGUSTO Administration Hydromorphone HCl 0.5 mg 01/12/24 12:28 01/12/24 15:13 Hydromorphone 1 Mg/Ml Inj 1 Ml IVP 0.5 mg Q4H PRN Administration BREAKTHROUGH PAIN Lactated Ringer's 1,000 mls @ 100 mls/hr 01/12/24 12:28 01/12/24 12:50 Lactated Ringers IV 100 mls/hr .Q10H AGUSTO Administration Acetaminophen 1,000 mg in 100 mls @ 400 mls/hr 01/12/24 12:28 01/12/24 13:06 Acetaminophen IV 01/13/24 04:42 Infused Q8H AGUSTO Infusion Cefazolin Sodium 2,000 mg/ 50 mls @ 100 mls/hr 01/12/24 12:28 01/12/24 14:43 Sodium Chloride IV 01/13/24 04:57 Infused Q8H AGUSTO Infusion Protocol Mupirocin 1 applic 01/12/24 18:00 01/12/24 17:21 Mupirocin Oint 22 Gm NASAL 01/17/24 17:59 1 applic BID AGUSTO Administration Oxycodone HCl 5 mg 01/12/24 12:28 01/12/24 17:34 Oxycodone 5 Mg Ir Tab/Cap PO 5 mg Q4H PRN Administration MODERATE PAIN Polysaccharide Iron Complex 150 mg 01/12/24 18:00 01/12/24 17:21 Iron Polysaccharide Complex 150 Mg Capsule PO 150 mg BIDWM AGUSTO Administration Senna/Docusate Sodium 2 tab 01/12/24 18:00 01/12/24 17:21 Sennosides-Docusate Tablet PO 2 tab BID AGUSTO Administration Tramadol HCl 50 mg 01/12/24 12:28 01/12/24 14:31 Tramadol 50 Mg Tablet PO 50 mg Q4H PRN Administration MILD PAIN PFSH Acute 2 PFSH: Medical History (Updated 01/12/24 @ 18:10 by Elaina Hyde MD) Stress incontinence in female Fracture of right distal radius Colitis GERD (gastroesophageal reflux disease) Adhesive capsulitis of left shoulder Osteoarthritis of left shoulder Surgical History (Updated 01/12/24 @ 18:09 by Elaina Hyde MD) Status post total replacement of left shoulder 03/22 Dr Bird H/O: hysterectomy Family History Brother Diabetes Mother Stroke Father Stroke Social History (Updated 01/12/24 @ 18:59 by Elaina Hyde MD) Smoking and tobacco/nicotine status: current every day tobacco/nicotine user cigarettes Packs smoked per day: 0.5 Second hand smoke exposure: Yes Alcohol intake: never Substance/Drug Use: never Vitals/I&O/Wt Last Vital Signs Temp 97.8 F 01/12/24 15:45 Pulse 72 01/12/24 15:45 Resp 16 01/12/24 17:34 BP 131/59 01/12/24 15:45 Pulse Ox 100 01/12/24 15:45 O2 Del Method Room Air 01/12/24 12:40 01/12/24 01/12/24 01/12/24 06:59 14:59 22:59 Intake Total 2800 / 2800 Output Total 500 / 500 Balance 2300 / 2300 Weight last 48 hrs Weight 61.235 kg Weight 61.235 kg Physical Exam 2 Narrative: Patient is awake and alert. Able to answer questions. Pupils are equally reactive. Oropharynx with dry membranes. Neck is supple. Lungs are clear to auscultation bilaterally without any rales rhonchi or wheezes noted. Cardiovascular exam reveals a regular rate and rhythm. Abdomen is soft. Left lower extremity with clean dry and intact dressing. She can move toes of the left foot and sensation is intact to light touch. Mcclellan catheter is noted in place with yellow urine. Speech is clear, face symmetric. Urinary Catheter Management: Mcclellan: Cath Placed During This Visit: yes Urinary Catheter Date of Insertion: 01/12/24 Urinary Catheter Time of Insertion: 08:50 Data 01/12/24 07:20 01/12/24 07:20 A&P Assessment and plan (1) Status post total hip replacement, left: POD #0 (2) Nicotine dependence, cigarettes, in remission: Quit approximately 4 weeks ago in preparation for surgery, but currently plans to resume smoking after recovery from surgery. She lives with someone who smokes making it more challenging. (3) GERD (gastroesophageal reflux disease): Chronically on pepcid (4) Stress incontinence in female: Has been tried on oxybutinin recently but stopped due to side effects (5) Status post total replacement of left shoulder: In 03/2022, did well with that surgical procedure, do not currently anticipate impact to recovery from hip surgery Plan Nausea and vomiting post operatively, after eating dinner and taking pills, had similar nausea and vomiting after shoulder surgery last year, suspect related to anesthesia more than medications administered currently S/P treatment with 5 days Bactrim preoperatively for abnormal urinalysis Continue home pepcid Have asked nursing to bring her some nausea medication Pain control as ordered per Dr Crisostomo, monitoring response to future doses in terms of nausea/vomiting, encouraged to take pills one at a time next go around Antibiotics as per Dr Crisostomo Will continue home flonase as needed Holding home diclofenac while on toradol Agree with ileana for anticoagualtion Breathing treatments as needed Incentive spirometry reviewed and encouraged We discussed the fact that at this point her nicotine cravings are more from habit - with hands, mouth - and experience dealing with situations or emotions than a physical addiction and if she can continue her great efforts to date would decrease risk of future health problems related to smoking Has iron, multivitamin, and stool softeners ordered VTE prophylaxis: eliquis GI Prophylaxis: chronically on pepcid Antibiotics: perioperative cefazolin Pending studies: am cbc and bmp Telemetry: not currently indicated Mcclellan: in place perioperatively with orders to remove 01/13/24 Line(s): peripheral IVs Disposition plan: Home with plan as per Dr Crisostomo anticipated 01/13 Code Status: Full Code Supportive care otherwise Findings, concerns and plans were discussed with patient/family in room and they were given an opportunity to ask questions Consult Attestations 2 Medical Necessity Statement: As per attending Coding Level of Care Code 03571 Low MDM includes number and complexity of problems actively addressed during encounter (smoking history and GERD), amount and/or complexity of data reviewed/ordered [ previous or external records, resulted lab(s)/test(s) and other healthcare professional discussion (Dr Crisostomo)] and described risk of complication, morbidity or mortality of management (continued home medications except for diclofenac) as documented Diagnoses Status post total hip replacement, left Z96.642 Nicotine dependence, cigarettes, in remission F17.211 GERD (gastroesophageal reflux disease) K21.9 Stress incontinence in female N39.3 Status post total replacement of left shoulder Z96.612
[2024-01-12] MEDS: famotidine 20 mg Tablet PO (18:33)
[2024-01-12] MEDS: ondansetron 2 mg/ML SDV 2 mL 4 MG IVP (18:46)
[2024-01-13] VITALS: BP 109/73; PULSE 70; RESP 16; TEMP 36.9; O2SAT 93
[2024-01-13] MEDS: lactated ringers 1,000 ML 100 ML IV (00:32)
[2024-01-13] MEDS: ketorolac 30 mg/mL INJ 15 MG IVP (02:17)
[2024-01-13 02:45] VITALS: RESP 18
[2024-01-13] MEDS: oxyCODONE 5 mg IR Tab/Cap PO ×2 (02:45→07:39)
[2024-01-13 04:00] VITALS: BP 111/73; PULSE 80; RESP 14; TEMP 36.8; O2SAT 91
[2024-01-13] MEDS: ceFAZolin 2,000 MG in sodium chloride 0.9% (plus) 50 ML 100 MG IV (05:00)
[2024-01-13] MEDS: acetaminophen 1,000 MG/100 ML PIGGYBACK 400 MG IV (05:00)
[2024-01-13 06:04] LABS: Basophils % 0.5 %; Eosinophils # 0.2 10^3/uL (0.0-0.8); Eosinophils % 3.6 %; Hematocrit 32.7 % (36-47); Lymphocytes # 1.2 10^3/uL (0.8-4.8); Lymphocytes % 18.1 %; Mean Corpuscular HGB Conc 32.4 g/dL (30-55); Mean Corpuscular Hemoglobin 29.6 pg (27-33); Mean Corpuscular Volume 91.3 fl (85-98); Mean Platelet Volume 8.8 fL (7.4-10.4); Monocytes # 0.6 10^3/uL (0.2-0.9); Monocytes % 9.7 %; Neutrophils # 4.47 10^3/uL (1.8-7.7); Neutrophils % 67.9 %; Nucleated Red Blood Cells % 0 %; Platelet Count 217 10^3/cmm (157-399); Red Blood Count 3.58 10^6/uL (3.85-5.65); Red Cell Distribution Width 12.9 % (12.1-15.1); White Blood Count 6.58 10^3/uL (3.29-11.43)
[2024-01-13 06:24] LABS: Anion Gap 11.2 (5-19); Blood Urea Nitrogen 14 mg/dL (8-23); Calcium 8.1 mg/dL (8.5-10.5); Carbon Dioxide 26 mmol/L (22-29); Chloride 103 mmol/L (98-107); Glomerular Filtration Rate 62.5 mL/min (90-130); Glucose 99 mg/dL (65-115); Osmolality Calculated 283 mOsm/kg (285-295); Potassium 4.2 mmol/L (3.5-5.1); Sodium 136 mmol/L (136-145)
--- NOTE | 2024-01-13 07:36 | PM.DCS ---
Discharge Providers Date of Admission: 01/12/24 12:08 Date of Discharge: January 13, 2024 Attending Provider at Admission: Brian Crisostomo DO Attending Provider at Discharge: Brian Crisostomo DO Consults: Dr. Hyde hospitalist Primary Care Provider: Jenna Ferris MD Diagnoses at Discharge Discharge Diagnosis (1) Status post total hip replacement, left: Status: Acute Permanent problem details: Ori assisted anterior approach, Dr Crisostomo (2) Nicotine dependence, cigarettes, in remission: Status: Acute (3) GERD (gastroesophageal reflux disease): Status: Chronic (4) Stress incontinence in female: Status: Chronic (5) Status post total replacement of left shoulder: Status: Inactive Permanent problem details: 03/22 Dr Bird Reason for Visit Reason for Visit: M16.12 Brief History: Status post left total hip arthroplasty Hospital Course Hospital Course Patient was brought to the hospital through the preoperative holding area with plan for left total hip arthroplasty for [left] hip dengerative joint disease. Once cleared by anesthesia for surgery subsequently was taken back to the operative suite underwent anesthesia per the anesthesia department and then underwent [left] total hip arthroplasty with Ori robotic assistance anterior approach without any complications. Patient was then subsequently taken back to PACU in stable condition recovering well. Once recovered, patient was then subsequently admitted to the floor postoperatively. Internal medicine was consulted for medical management assistance. Patient weightbearing as tolerated to the right lower extremity, anterior hip precautions. PT/OT. Pain control. DVT prophylaxis. Postoperative antibiotics and TXA. dressing was change as needed. Internal medicine was on board and appreciate their medical management and assistance. Pt was determined on postoperative day [1] the patient was stable for discharge from orthopedic as well as internal medicine standpoint. Patient's labs were monitored daily. Patient will receive appropriate pain medication as well as DVT prophylaxis postoperatively. Appropriate discharge instructions as well. Patient was then discharged in stable condition. Patient will discharge home. Pt will follow-up with Orthopedics in the office in 2 weeks. Patient understands and agrees with current plan. All questions answered. Understands there is any issues or concerns and contact the office. Physical Exam Narrative: Examination of the dressings are clean dry and intact no saturation noted. Normal postoperative swelling as well as tenderness around the left hip incision. She able to perform straight leg raise. Can wiggle toes plantarflex and dorsiflex ankle sensations intact to light touch distally. Distal pulses are palpable. Urinary Catheter Management: Mcclellan: Cath Placed During This Visit: yes, but has since been removed by the nurse Reason for Continuing Indwelling Catheter: Required Immobilization for Trauma or Surgery or Anesthesia Urinary Catheter Date of Insertion: 01/12/24 Urinary Catheter Time of Insertion: 08:50 Date Urinary Catheter Removed: 01/13/24 Time Urinary Catheter Discontinued: 06:28 Discharge Data Studies Completed and Pending Completed Studies During Hospitalization Category Date Time Status XR hip LT 2-3V wo/w pel* 90997 Routine Exams 01/12/24 12:28 Completed XR hip RT 2-3V wo/w pel* [id number] Routine Exams 01/12/24 Completed Pending at discharge Category Date Time Status C-arm Fluoroscopy 08998 Routine Exams 01/12/24 Ordered Basic Metabolic Panel AM LABS Lab 01/14/24 04:00 Ordered Basic Metabolic Panel AM LABS Lab 01/15/24 04:00 Ordered Complete Blood Count w/Auto AM LABS Lab 01/14/24 04:00 Ordered Complete Blood Count w/Auto AM LABS Lab 01/15/24 04:00 Ordered Radiology Impressions Hip/Pelvis X-Ray 01/12/24 12:28 IMPRESSION: No acute findings. Laboratory Results WBC 6.58 10^3/uL (3.29-11.43) 01/13/24 05:55 RBC 3.58 10^6/uL (3.85-5.65) L 01/13/24 05:55 Hgb 10.60 g/dL (11.27-16.99) L 01/13/24 05:55 Hct 32.7 % (36-47) L 01/13/24 05:55 MCV 91.3 fl (85-98) 01/13/24 05:55 MCH 29.6 pg (27-33) 01/13/24 05:55 MCHC 32.4 g/dL (30-55) 01/13/24 05:55 RDW 12.9 % (12.1-15.1) 01/13/24 05:55 Plt Count 217 10^3/cmm (157-399) D 01/13/24 05:55 MPV 8.8 fL (7.4-10.4) 01/13/24 05:55 Neut % (Auto) 67.9 % 01/13/24 05:55 Lymph % (Auto) 18.1 % 01/13/24 05:55 Navarro % (Auto) 9.7 % 01/13/24 05:55 Eos % (Auto) 3.6 % 01/13/24 05:55 Baso % (Auto) 0.5 % 01/13/24 05:55 Neut # (Auto) 4.47 10^3/uL (1.8-7.7) 01/13/24 05:55 Lymph # (Auto) 1.2 10^3/uL (0.8-4.8) 01/13/24 05:55 Navarro # (Auto) 0.6 10^3/uL (0.2-0.9) 01/13/24 05:55 Eos # (Auto) 0.2 10^3/uL (0.0-0.8) 01/13/24 05:55 Baso # (Auto) 0.0 10^3/uL (0.0-0.1) 01/13/24 05:55 Nucleated RBC % (auto) 0 % 01/13/24 05:55 Nucleated RBCs # 0.0 /100WBC 01/13/24 05:55 Sodium 136 mmol/L (136-145) 01/13/24 05:55 Potassium 4.2 mmol/L (3.5-5.1) 01/13/24 05:55 Chloride 103 mmol/L (98-107) 01/13/24 05:55 Carbon Dioxide 26 mmol/L (22-29) 01/13/24 05:55 Anion Gap 11.2 (5-19) 01/13/24 05:55 BUN 14 mg/dL (8-23) 01/13/24 05:55 Creatinine 0.9 mg/dL (0.5-0.9) 01/13/24 05:55 GFR Calculation 62.5 mL/min (90-130) L 01/13/24 05:55 Glucose 99 mg/dL (65-115) 01/13/24 05:55 Calculated Osmolality 283 mOsm/kg (285-295) L 01/13/24 05:55 Calcium 8.1 mg/dL (8.5-10.5) L 01/13/24 05:55 Blood Type A Positive 01/12/24 07:20 Rho(D) Type Rh positive 01/12/24 07:20 Antibody Screen Negative 01/12/24 07:20 Procedures Performed Status post left total hip arthroplasty Vitals Last Vital Signs Temp 98.3 F 01/13/24 04:00 Pulse 80 01/13/24 04:00 Resp 14 01/13/24 04:00 BP 111/73 01/13/24 04:00 Pulse Ox 91 01/13/24 04:00 O2 Del Method Room Air 01/12/24 18:28 Discharge Plan Discharge Patient Disposition: Home Condition: Stable Prescriptions: New Eliquis 2.5 mg tablet 2.5 mg PO BID 35 Days Qty: 70 0RF oxycodone 5 mg tablet 5 mg PO Q6H PRN (Reason: pain postop) 7 Days Qty: 28 0RF Calcium 600 + D(3) 600 mg-10 mcg (400 unit) tablet 1 tab PO DAILY 30 Days Qty: 30 0RF Continued famotidine 20 mg tablet 20 mg PO BID Qty: 60 0RF Rx Instructions: after [address] Ferris's nurse for report fluticasone propionate 50 mcg/actuation spray,suspension 1 spray intranasal BID Qty: 16 0RF Rx Instructions: administer into each nostril Discontinued diclofenac sodium 75 mg tablet,delayed release (DR/EC) 75 mg PO BID PRN (Reason: pain) Qty: 60 0RF Discharge Orders: Discharge Order (Routine); Ordered 01/13/24 Ordered By: Brian Crisostomo Other Ambulatory Orders: DME: Curt (Order) Location: None Selected Ordered By: Brian Crisostomo Referrals: Brian Crisostomo DO [Physician] - 01/27/24 8:45 am Discharge Diet: Regular Discharge Activity: Limit activity as instructed Patient Instructions: Oxycodone/Acetaminophen (By mouth), Ondansetron (By mouth), Vitamin Combination, Adult Formula (By mouth), Apixaban (By mouth), Total Hip Replacement (GEN), Joint Replacement Stoplight Activity Restrictions/Additional Instructions: Orthopedic discharge instructions: Patient should keep dressings clean dry and intact Okay to shower over dressings if they do become wet these should be removed and new dressings applied Keep incisions clean dry and intact, leave Silverlon bandage and BENJAMÍN dressings on in place for 7 days after that may rinse incisions with warm soapy water pat dry and redress with a dry dressing Weight-bear as tolerated to operative lower extremity Anterior hip precautions as instructed by physical therapy Ice as needed for pain and swelling Take pain medication as prescribed Take antinausea medication as needed Supplement with Citracal vitamin D for bone health and healing Take Colace as needed for constipation Take blood thinner as prescribed (Eliquis) Follow-up in the orthopedic office in 2 weeks Contact the office for any questions or concerns Discharge Attestations Time Spent in Discharge Care*: less than 30 min Quality Metrics Clinical Quality Measures [ No reported AMI, CVA or VTE this stay] Coding Level of Care Code Acute Code for Chg Fwd Diagnoses Status post total hip replacement, left Z96.642 Nicotine dependence, cigarettes, in remission F17.211 GERD (gastroesophageal reflux disease) K21.9 Stress incontinence in female N39.3 Status post total replacement of left shoulder Z96.612
[2024-01-13 07:39] VITALS: RESP 16
[2024-01-13 07:49] VITALS: BP 119/77; PULSE 84; RESP 18; TEMP 36.8; O2SAT 94
[2024-01-13] MEDS: apixaban 5 mg Tablet 2.5 MG PO (09:32)
[2024-01-13] MEDS: calcium carb-vit d 600mg/400unit 1 Tablet 1 EACH PO (09:33)
[2024-01-13] MEDS: chlorhexidine gluconate 0.12% Btl 473 mL 30 ML MUCOUS MEM (09:33)
[2024-01-13] MEDS: iron polysaccharide complex 150 mg Capsule PO (09:33)
[2024-01-13] MEDS: sennosides-docusate Tablet 2 TAB PO (09:33)
[2024-01-13] MEDS: multivitamin therapeutic Tablet 1 TAB PO (09:33)
[2024-01-13] MEDS: mupirocin oint 22 gm 1 APPLIC NASAL (09:34)
[2024-01-13 10:58] VITALS: BP 119/77; PULSE 84; RESP 18; TEMP 36.8; O2SAT 94
== END 2024-01-13 10:40 | disposition home or self-care (01) ==
LOC: MEDSURG 12:08
PROVIDERS: Physician Assistant; Admitting Provider Student in an Organized Health Care Education/Training Program; PCP Family Medicine; Visit Provider Student in an Organized Health Care Education/Training Program
PROC: 8E0Y0CZ Robotic Assisted Procedure of Lower Extremity, Open Approach (ICD-10-PCS; CPT 27130; principal; 2024-01-12 08:10)
DX: M16.12 Unilateral primary osteoarthritis, left hip (principal); F17.211 Nicotine dependence, cigarettes, in remission; K21.9 Gastro-esophageal reflux disease without esophagitis; N39.3 Stress incontinence (female) (male); Z96.612 Presence of left artificial shoulder joint; J44.9 Chronic obstructive pulmonary disease, unspecified
CPT/HCPCS: 20985; 27130; 36415; 51702; 73502; 76000; 80048; 85025; 86850; 86900; 97110; 97116; 97161; 97165; 97530; C1713; C1776; G0378; J0131; J0690; J1170; J1885; J2250; J2371; J2405; J2704; J3370; J7030; J7120

== ENCOUNTER → 2024-01-27 08:52 | Outpatient (BNVA) | payer MEDICARE, MEDICAID, SELFPAY | PROVIDERS: PCP Family Medicine; Visit Provider Student in an Organized Health Care Education/Training Program | DX: Z96.642 Presence of left artificial hip joint (principal) | CPT/HCPCS: 73502; 99024 ==

== ENCOUNTER 2024-02-02 10:33 | Outpatient (RCR) | payer MEDICARE, MEDICAID, SELFPAY | END 2024-02-29 23:59 | disposition home or self-care (01) | LOC: SPT 10:33 | PROVIDERS: PCP Family Medicine; Visit Provider Student in an Organized Health Care Education/Training Program | DX: Z47.1 Aftercare following joint replacement surgery (principal); Z96.642 Presence of left artificial hip joint | CPT/HCPCS: 97110; 97161 ==

== ENCOUNTER 2024-03-01 06:00 | Outpatient (RCR) | payer MEDICARE, MEDICAID, SELFPAY | END 2024-03-30 23:59 | disposition home or self-care (01) | LOC: SPT 06:00 | PROVIDERS: PCP Family Medicine; Visit Provider Student in an Organized Health Care Education/Training Program | DX: Z98.890 Other specified postprocedural states (principal) | CPT/HCPCS: 97110 ==

== ENCOUNTER → 2024-03-09 10:53 | Outpatient (BNVA) | payer MEDICARE, MEDICAID, SELFPAY | PROVIDERS: PCP Family Medicine; Visit Provider Student in an Organized Health Care Education/Training Program | DX: Z96.642 Presence of left artificial hip joint (principal) | CPT/HCPCS: 73502; 99024 ==

== ENCOUNTER → 2024-05-04 09:08 | Outpatient (BNVA) | payer MEDICARE, MEDICAID, SELFPAY | PROVIDERS: PCP Family Medicine; Visit Provider Student in an Organized Health Care Education/Training Program | DX: Z96.642 Presence of left artificial hip joint (principal); T81.30XA Disruption of wound, unspecified, initial encounter; Y83.8 Other surgical procedures as the cause of abnormal reaction of the patient, or of later complication, without mention of misadventure at the time of the procedure | CPT/HCPCS: 73502; 99213 ==

== ENCOUNTER → 2024-05-18 09:40 | Outpatient (BNVA) | payer MEDICARE, MEDICAID, SELFPAY | PROVIDERS: PCP Family Medicine; Visit Provider Student in an Organized Health Care Education/Training Program | DX: Z96.642 Presence of left artificial hip joint (principal); T81.30XA Disruption of wound, unspecified, initial encounter; Y83.8 Other surgical procedures as the cause of abnormal reaction of the patient, or of later complication, without mention of misadventure at the time of the procedure | CPT/HCPCS: 73502; 99213 ==

== ENCOUNTER → 2024-06-01 13:12 | Outpatient (BNVA) | payer MEDICARE, MEDICAID, SELFPAY | PROVIDERS: PCP Family Medicine; Visit Provider Student in an Organized Health Care Education/Training Program | DX: Z96.642 Presence of left artificial hip joint (principal) | CPT/HCPCS: 99213 ==

== ENCOUNTER → 2024-09-13 12:12 | Outpatient (BNVA) | payer MEDICARE, MEDICAID, SELFPAY | PROVIDERS: PCP Family Medicine; Visit Provider Family Medicine | DX: Z96.642 Presence of left artificial hip joint (principal); F17.211 Nicotine dependence, cigarettes, in remission | CPT/HCPCS: 80053; 85025 ==

== ENCOUNTER → 2024-10-19 08:24 | Outpatient (BNVA) | payer MEDICARE, MEDICAID, SELFPAY | PROVIDERS: PCP Family Medicine; Visit Provider Student in an Organized Health Care Education/Training Program | DX: M15.8 Other polyosteoarthritis (principal) | CPT/HCPCS: 73130; 99213 ==

== ENCOUNTER → 2025-01-28 08:31 | Outpatient (BNVA) | payer MEDICARE, SELFPAY | PROVIDERS: PCP Family Medicine; Visit Provider Physician Assistant | DX: Z96.642 Presence of left artificial hip joint (principal); Z47.1 Aftercare following joint replacement surgery | CPT/HCPCS: 73502; 99213 ==